=== PATIENT | female | born 1990 | race Hispanic/Latino ===

== ENCOUNTER → 2025-06-28 13:28 | Outpatient (CLI) | payer OTHER, SELFPAY ==
--- NOTE | 2025-06-28 13:31 | DI.US.S_ITS ---
PROCEDURE: US OB >= 14 WEEKS FETUS INDICATIONS: 20 week anatomy scan OUTSIDE/PRIOR DATING DATA: Last menstrual period (LMP): 02/08/2025 LMP-based estimated date of delivery (PRIETO): 11/15/2025. First dating scan (date and location): 05/09/2025. Estimated date of delivery (PRIETO) from first dating scan: 11/11/2025. Working PRIETO is 11/15/2025 TECHNIQUE: Real-time scanning was performed of the fetus, with image documentation and biometric measurements. Endovaginal scanning: No COMPARISON: None. FINDINGS: General: A single living intrauterine gestation is present. Presentation: Transverse. Placenta: Placental position is posterior , without previa. Amniotic fluid index: 14.2 cm, normal range is 5-24 cm. Single deepest vertical pocket is 4.4 cm. heart rate: 145 beats per minute. Maternal cervical canal: 4.3 cm long. Normal lower limit is 2.5 cm. biometrics: Biparietal diameter: 19 weeks 3 days Head circumference: 19 weeks 4 days Abdominal circumference: 20 weeks 2 days Femur length: 20 weeks 3 days Clinically estimated gestational age: 20 weeks Composite gestational age from present scan: 20 weeks Estimated weight and percentile: 59 percentile Anatomic survey: Neuro: Ventricles are non-dilated at less than 10 mm. Cisterna magna is normal at 3-11 mm. Cerebellum is normal in size and morphology. Nuchal skin fold: Normal at less than 6 mm between 14-21 weeks gestational age. Face: Nose and lips, facial profile are normal. Spine: No evidence for spina bifida. Heart: 4-chambered heart is present, with normal ventricular outflow tracts. Diaphragm: Diaphragm is intact. Stomach: Left-sided stomach is present. Kidneys: Right kidney not visualized. Unremarkable sonographic appearance of the left kidney. No hydronephrosis. Normal is less than 5 mm in 2nd trimester, less than 7 mm in 3rd trimester. Cord: 3-vessel cord has orthotopic insertion. Bladder: Normal in size. Extremities: All 4 extremities identified. IMPRESSION: 1. Single living IUP redemonstrated and interval growth is within normal limits. 2. Right kidney not well seen; otherwise normal anatomic survey. Short- term follow-up recommended. We strive to produce accurate, complete, and clear reports of imaging services. To assist us in improving patient care, this report was composed using standard report templates and voice recognition software. Therefore, it may contain abnormal punctuation, insertions and/or omissions. Occasional wrong-word or sound-alike substitutions may occur. Though we review the report and make efforts to correct it, we do recommend that the report be read carefully in proper context to recognize any text inaccuracies. Dictated by: Jaren JYO Interpreted: Sukhwinder Bone MD on 06/28/2025 at 15:57 Transcribed by: KIERRA on 06/28/2025 at 16:01 Approved by: Sukhwinder Bone M.D. on 06/28/2025 at 17:11
== END ==
PROVIDERS: Referring Provider Advanced Practice Midwife; Visit Provider Advanced Practice Midwife
DX: Z34.92 Encounter for supervision of normal pregnancy, unspecified, second trimester (principal); Z3A.20 20 weeks gestation of pregnancy
CPT/HCPCS: 76811

== ENCOUNTER → 2025-07-24 15:15 | Outpatient (CLI) | payer OTHER, SELFPAY ==
--- NOTE | 2025-07-24 15:16 | DI.US.S_ITS ---
PROCEDURE: US OB FOLLOW UP
== END ==
PROVIDERS: Referring Provider Nurse Practitioner Obstetrics & Gynecology; Visit Provider Nurse Practitioner Obstetrics & Gynecology
DX: Z34.82 Encounter for supervision of other normal pregnancy, second trimester (principal); Z3A.23 23 weeks gestation of pregnancy
CPT/HCPCS: 76816

== ENCOUNTER → 2025-08-29 13:25 | Outpatient (ROUT) | payer OTHER, SELFPAY | LOC: LAB 13:28 | PROVIDERS: Visit Provider Nurse Practitioner Obstetrics & Gynecology | DX: Z34.93 Encounter for supervision of normal pregnancy, unspecified, third trimester (principal); Z3A.28 28 weeks gestation of pregnancy | CPT/HCPCS: 86900; 86901 ==